=== PATIENT | female | born 1950 | race Caucasian/White ===

== ENCOUNTER 2016-09-30 08:02 | Outpatient (CLI) | payer MEDICARE, OTHER ==
[2016-09-30 08:48] LABS: eGFR (African) > 60; eGFR (Non-African) > 60
== END 2016-09-30 08:03 ==
LOC: LAB 08:02
PROVIDERS: ATTEND Family Medicine
DX: I10 Essential (primary) hypertension (principal)
CPT/HCPCS: 36415; 80053; 80061

== ENCOUNTER 2018-10-06 21:00 | Observation (INO) | payer OTHER, MEDICAID ==
[2018-10-06] MEDS ORDERED: 0.9 % SODIUM CHLORIDE 1,000 ML IV ONE (21:25)
--- NOTE | 2018-10-06 21:55 | ED Physician Documentation ---
Neuro Symptoms - HISTORIAN Historian: patient - HPI Chief Complaint: Weakness (Left leg/arm) Additional Information: Patient is a 68-year-old female who presents to the ER via [facility] from home. Patient states that she is having some left leg weakness (feels like her left leg is going to give out)- she noticed symptoms at noon today when her and her daughter were in [place] eating at [facility] [employer]. Patient states that she was [place] and "fell" into her seat because her left leg gave out. They ate and then she was able to ambulate to her vehicle and drove back to [place]. She states that she fell on her right knee this evening due to left leg weakness- she had some tingling in her had- she became very anxious (has a history of anxiety and takes xanax TID) and this just increased her symptoms so her daughter called the ambulance. On arrival to ER patient appears to be in no acute distress- speech is clear- she is able to move from EMS cot to ER cot with minimal help. Band Sawing Machine Operator are equal, smile is symmetric, tongue is midline- no arm drift- strong pushes'/pulls with feet but she is unable to keep left leg raised. She denies any recent illnesses. Denies any fever, chills, vomiting or diarrhea. She does smoke 1ppd and has chronic cough. Onset: hours Timing: gradual onset, still present (but improved) Last known Well Date: 10/06/18 Last Known Well Time: 12:00 Last known Well Code/Unknown Code: Known Severity: mild Context: denies: head injury Further Comments: no - CHARACTERS OF DEFICIT New Weakness: LLE Altered Sensation: none Vision Problems: No (wears glasses) Impaired Speech/ Swallowing: No Decreased Ability: walk, weak Cognition is Usually: alert, oriented x3 Gait is Usually: walks w/o assistance Associated Symptoms: none - ROS MENTAL STATUS: none CVS/Resp Upper Extremity Problem: cough GI/ DYSPNEA: nausea MS/SKIN/LYMPH: none Neuro/Psych: anxiety - PAST HX Past History: depression, other (GERD) Other History: hypertension Surgeries/Procedures: other (Right knee) Immunizations: influenza, pneumovax, UTD Allergies/Adverse Reactions: Allergies Allergy/AdvReac Type Severity Reaction Status Date / Time codeine AdvReac Mild Rash Verified 10/06/18 22:02 - FAMILY HX Family History: cardiac disease - SOCIAL HX Smoking History: greater than 1 pack/day Alcohol Use: none Drug Use: none - VITAL SIGNS Vital Signs: Vital Signs Temp Pulse Resp BP Pulse Ox 97.5 F L 88 16 153/90 88 L 10/06/18 21:10 10/06/18 21:10 10/06/18 21:10 10/06/18 21:10 10/06/18 21:10 - REVIEWED ASSESSMENTS Nursing Assessment Reviewed: Yes Vitals Reviewed: Yes Progress - Progress Progress: Discussed with patient about staying in hospital to monitor closely- she wants to go home- we educated her on the risks of going home and having a stroke or even - explained that she would have to sign a refusal. She wants to think about it. Patient is agreeing to stay overnight. We discussed if left leg strength does not improve by morning we should consider setting up transfer to Neurology in [place]. Patient states that she will stay here but then she is going home in the morning- I explained that we could address the topic again in the morning. Patient got up to [facility] with assist x 2- left leg very weak- discussed transfer to [facility] and she is adamantly refusing- she is very much alert and oriented and able to make decision- explained the HIGH risk of severe stroke and even . She states that she will stay the night but she is going home in the morning- she states she will make appointment with PCP first thing Monday. - EKG/XRAY/CT EKG: NSR ED Results Lab/Radiology - Radiology Radiology Impressions: Head CT without contrast CLINICAL HISTORY: Left-sided weakness. TECHNIQUE: CT examination of brain is performed in contiguous axial slices with sagittal and coronal reconstructions. FINDINGS: The 4th ventricle lies in a normal midline position. The ventricles and sulci are prominent secondary to atrophy. Chronic small vessel ischemic changes are present in the periventricular regions. Intracranial atherosclerosis is evident. There is no hypodense or hyperdense mass or intracranial hemorrhage. Visualized paranasal sinuses and mastoid air cells are clear. IMPRESSION: Mild atrophy and chronic small vessel ischemic changes. Chronic paranasal sinus disease. Intracranial atherosclerosis. PA and lateral chest CLINICAL HISTORY: Weakness. FINDINGS: Examination of the chest in PA and lateral views with no prior film for comparison demonstrates the lungs to be hyperinflated but clear. Cardiac silhouette is enlarged and the aorta is atherosclerotic. Monitor leads superimpose the chest. Degenerative changes are seen in the thoracic vertebrae. IMPRESSION: Aortic atherosclerosis and left ventricular prominence. Hyperinflation. Electronically signed on Oct 06, 2018 10:30:40 PM CYTOGENETIC TECHNICIAN by: Minor Patino - Orders Orders: ED Orders Category Date Time Status Place IV Lock 1T Care 10/06/18 21:19 Active CHEST 2VIEW [RAD] Stat Exams 10/06/[address] BRAIN W/O CONTRAST Stat Exams 10/06/18 Ordered CBC/PLATELET/DIFF Routine Lab 10/06/18 21:36 Received CKMB Stat Lab 10/06/18 21:35 Received CMP Routine Lab 10/06/18 21:36 Received CREATINE KINASE Routine Lab 10/06/18 21:36 Received TROPONIN I (cTnI) Stat Lab 10/06/18 21:35 Received URINALYSIS Routine Lab 10/06/18 21:18 Ordered 0.9 % Sodium Chloride [Normal Saline] 1,000 ml Med 10/06/18 21:25 Active IV NOW EKG WITH COMPARISON Stat Ther 10/06/18 Ordered Neuro Symptoms Physical Exam - Physical Exam General Appearance: no acute distress, alert, anxious HEENT: PERRL, ENT inspection nml, pharynx nml, oral exam nml Neuro/Psych: alert, oriented x3, no evidence of acute CVA, mood/affect nml Cranial Nerves: nml as tested Pheripheral Exam: motor nml, sensation nml, weakness (unable to hold left leg up) Neck: normal inspection, supple Respiratory: no resp distress, chest non-tender, rhonchi (left upper lobe) CVS: reg rate & rhythm, heart sounds normal, equal pulses, no murmur Abdomen: non-tender, no distention Skin: color nml Extremities: non-tender, no edema Discharge Clincal Impression: Weakness of left leg, Symptoms of cerebrovascular accident (CVA) Comments: Patient refusing transfer- refusal form completed Condition: Stable Disposition: ADMITTED INPATIENT Decision to Admit: NO Decision Time: 23:55
[2018-10-07] MEDS ORDERED: ALPRAZOLAM 0.5 MG TABLET PO PRN (00:05)
[2018-10-07 00:53] VITALS: BMI 73.3
[2018-10-07] MEDS: ENOXAPARIN SODIUM 40 MG/0.4 ML DISP.SYRIN SQ SCH ×2 (01:22→08:40)
[2018-10-07] MEDS ORDERED: ENOXAPARIN SODIUM 40 MG/0.4 ML DISP.SYRIN SQ ONE ×2 (01:23→08:18)
--- NOTE | 2018-10-07 06:24 | Diagnostic Imaging Report ---
SUBHA NANCE [facility] [id number] [facility].[address] [id number] Report Submission Date: Oct 06, 2018 10:30:40 PM BIOMEDICAL SPECIALIST Patient Study Name: BINDU COBURN Date: Oct 06, 2018 10:03:22 PM BIOMEDICAL SPECIALIST Modality Type: DX Gender: F Description: CHEST 2VIEW : 50 Institution: [facility] Physician: SUBHA NANCE PA and lateral chest CLINICAL HISTORY: Weakness. FINDINGS: Examination of the chest in PA and lateral views with no prior film for comparison demonstrates the lungs to be hyperinflated but clear. Cardiac silhouette is enlarged and the aorta is atherosclerotic. Monitor leads superimpose the chest. Degenerative changes are seen in the thoracic vertebrae. IMPRESSION: Aortic atherosclerosis and left ventricular prominence. Hyperinflation. Electronically signed on Oct 06, 2018 10:30:40 PM BIOMEDICAL SPECIALIST by: Minor DUGAN
--- NOTE | 2018-10-07 06:24 | Diagnostic Imaging Report ---
SUBHA NANCE [facility] [id number] [facility] [address] [place] [address]. [id number] Report Submission Date: Oct 06, 2018 10:27:59 PM EXPLOSIVES MIXER OPERATOR Patient Study Name: BINDU COBURN Date: Oct 06, 2018 9:55:01 PM EXPLOSIVES MIXER OPERATOR Modality Type: CT\SR Gender: F Description: CT BRAIN W/O CONTRAST : 50 Institution: [facility] Physician: SUBHA NANCE Head CT without contrast CLINICAL HISTORY: Left-sided weakness. TECHNIQUE: CT examination of brain is performed in contiguous axial slices with sagittal and coronal reconstructions. FINDINGS: The 4th ventricle lies in a normal midline position. The ventricles and sulci are prominent secondary to atrophy. Chronic small vessel ischemic changes are present in the periventricular regions. Intracranial atherosclerosis is evident. There is no hypodense or hyperdense mass or intracranial hemorrhage. Visualized paranasal sinuses and mastoid air cells are clear. IMPRESSION: Mild atrophy and chronic small vessel ischemic changes. Chronic paranasal sinus disease. Intracranial atherosclerosis. Electronically signed on Oct 06, 2018 10:27:59 PM EXPLOSIVES MIXER OPERATOR by: Minor DUGAN
[2018-10-07 07:03] LABS: eGFR (Non-African) > 60
--- NOTE | 2018-10-07 07:36 | Discharge Summary ---
Discharge Summary - Discharge Sumary History of Present Illness: Patient is a 68-year-old female who presents to the ER via [facility] from home. Patient states that she is having some left leg weakness (feels like her left leg is going to give out)- she noticed symptoms at noon today when her and her daughter were in [place] eating at [facility]. Patient states that she [place] and "fell" into her seat because her left leg gave out. They ate and then she was able to ambulate to her vehicle and drove back to [place]. She states that she fell on her right knee this evening due to left leg weakness- she had some tingling in her had- she became very anxious (has a history of anxiety and takes xanax TID) and this just increased her symptoms so her daughter called the ambulance. On arrival to ER patient appears to be in no acute distress- speech is clear- she is able to move from EMS cot to ER cot with minimal help. Sales Relationship Manager are equal, smile is symmetric, tongue is midline- no arm drift- strong pushes'/pulls with feet but she is unable to keep left leg raised. She denies any recent illnesses. Denies any fever, chills, vomiting or diarrhea. She does smoke 1ppd and has chronic cough. Condition at Discharge: Unstable (due to continued left leg weakness) Consultations this Visit: None Procedures this Visit: None Allergies/Adverse Reactions: Allergies Allergy/AdvReac Type Severity Reaction Status Date / Time codeine AdvReac Mild Rash Verified 10/06/18 22:02 Patient Problems: Current Active Problems Problem Status Onset Symptoms of cerebrovascular accident (CVA) Acute Weakness of left leg Acute Discharge Summary: Patient is a 68-year-old female that finally let me admit her observation after trying to encourage her to let me transfer her to the [facility] for a neurological work-up to rule out stroke. Patient still required help using the bedside commode this morning (she is normally independent). She was showing me how she is able to raise the left leg and hold it... she is also able to bend at the knee and hold it. She was not able to do this last night. However, I explained to her that her Head CT showed a lot of atherosclerosis and this puts her at an increased risk for stroke. She voiced understanding- and is still refusing to be transferred. She is very much alert and oriented x 4 and able to make her own decisions. She stated that if she showed any further signs of a stroke (I educated her on symptoms) she would call an ambulance and go to [place]- I explained that left sided weakness is a sign of a stroke- she voiced understanding and stated that she was going home this morning. I explained that she would have to sign an AMA form and I explained "Benefits" and "Risks"- she still wants to go home and states that she understands and will sign the paperwork. She stated that she would call PCP in the morning and schedule appointment. Hospital Course: Patient signing out "Against Medical Advice"
[2018-10-07] MEDS ORDERED: LOSARTAN POTASSIUM 50 MG TABLET PO ONE (08:18)
[2018-10-07 08:38] LABS: MEAN CORPUSCULAR HEMOGLOBIN 28.7 pg (28.0-34.0)
[2018-10-07 08:39] LABS: BASOPHILS % 0.6 (0.0-1.5); EOSINOPHILS % 3.9 % (0.0-6.8); MONOCYTES % 4.2 % (0.0-11.0); NEUTROPHILS # 4.9 # k/uL (1.4-7.7); eGFR (Non-African) > 60
[2018-10-07 08:43] LABS: APPEARANCE,URINE CLEAR (CLEAR); COLOR,URINE YELLOW (YELLOW); OCCULT BLOOD,URINE NEGATIVE (NEGATIVE); UROBILINOGEN URINE 0.2 Eu (0.2-1.0)
[2018-10-07] MEDS ORDERED: LOSARTAN POTASSIUM 25 MG PO SCH (09:00)
[2018-10-07 09:39] VITALS: BP 199/86
[2018-10-07] MEDS ORDERED: hydrALAZINE HCL 20 MG/1 ML IVP ONE (10:20)
[2018-10-07] MEDS ORDERED: hydrALAZINE HCL 20 MG/1 ML ONE (11:00)
== END 2018-10-07 11:05 | disposition short-term general hospital (02) ==
LOC: ED 21:00 → SOUTH 23:31
PROVIDERS: ADMIT Nurse Practitioner Family; ATTEND Family Medicine
DX: I67.2 Cerebral atherosclerosis (principal); I10 Essential (primary) hypertension; F41.9 Anxiety disorder, unspecified; R53.1 Weakness; W18.30XA Fall on same level, unspecified, initial encounter; Y92.9 Unspecified place or not applicable; F17.210 Nicotine dependence, cigarettes, uncomplicated
CPT/HCPCS: 70450; 71046; 80053; 81002; 82550; 82553; 84484; 85025; 85610; 93005; 99284; 99285; G0378; J0360; J1650; J7030; 99217; S1016

== ENCOUNTER 2019-04-02 12:31 | Outpatient (CLI) | payer OTHER, MEDICAID ==
[2019-04-02 12:59] LABS: BASOPHILS % 0.6 % (0.0-1.5); NEUTROPHILS # 4.9 # k/uL (1.4-7.7)
[2019-04-02 13:02] LABS: eGFR (Non-African) > 60
[2019-04-02 13:06] LABS: A1C 10.6 % (<5.7)
== END 2019-04-02 12:33 ==
LOC: LABRHC 12:31
PROVIDERS: ATTEND Family Medicine
DX: I10 Essential (primary) hypertension (principal); R73.9 Hyperglycemia, unspecified
CPT/HCPCS: 80053; 83036; 85025